=== PATIENT | male | born 1980 | race Caucasian/White ===

== ENCOUNTER 2018-01-16 21:19 | Emergency (ER) | payer OTHER, MEDICAID, SELFPAY ==
[2018-01-16 21:34] VITALS: BP 140/85; PULSE 73; RESP 16; TEMP 36.7; O2SAT 100; BMI 25.0
--- NOTE | 2018-01-16 21:56 | DI.CT.S_ITS ---
PROCEDURE: CT HEAD/BRAIN WO CON INDICATIONS: severe headaches, blurred vision TECHNIQUE: Noncontrast 4.5 mm thick angled axial sections acquired from the foramen magnum to the vertex, with coronal and sagittal reformats. For radiation dose reduction, the following was used: automated exposure control, adjustment of mA and/or kV according to patient size. COMPARISON: [facility], CR, XR HAND 2VW LT, 10/27/2016, 16:29. FINDINGS: Image quality: Excellent. CSF spaces: Basal cisterns are patent. No extra-axial fluid collections. Ventricles are normal in size and shape. Brain: No midline shift. No intracranial masses or hemorrhage. Alejandra-white matter interface is normal. Skull and face: Calvarium and visualized facial bones are intact, without suspicious lesions. Sinuses: Visualized sinuses and mastoids are clear. IMPRESSION: No acute intracranial process. Dictated by: Jacob Hollingsworth M.D. on 01/17/2018 at 7:03 Approved by: Jacob Hollingsworth M.D. on 01/17/2018 at 7:05
--- NOTE | 2018-01-16 22:43 | ED_ITS ---
HPI - Eye Problem General Chief complaint: Eye Problems Stated complaint: BILATERAL EYE PAIN, HEADACHES Time Seen by Provider: 01/16/18 21:30 Source: patient Mode of arrival: ambulatory Limitations: no limitations History of Present Illness HPI Narrative: 37-year-old nonsmoker presents to the emergency department with a chief complaint of irritation to his eyelids bilaterally. He's had burning and irritation to the skin of his upper eyelids and just below his brows for a few weeks. His symptoms have worsened since applying hydrocortisone cream (OTC 1 %). He was seen by his PCP whom sent him to an child care center administrator. He had a full eye exam and his eyes were normal. He thinks his symptoms may have started after being exposed to pigeon nests and feathers. He's started developing nonspecific frontal headaches as well. He denies any fever chills nor nausea or vomiting. He has had no chest pain, cough or shortness of breath. He denies any other rash. He denies any redness or watering of his eyes. He denies any drainage. He states that the skin of his eyelids has become slightly discolored mentioning to him it looks reddish yellow and there are blisters. Onset description: gradual Duration: constant Location: both eyes Eye Symptoms: burning If Pain, Quality: burning Associated symptoms: headache Related Data Home Medications Medication Instructions Recorded Confirmed cyclobenzaprine 10 mg PO PRN PRN 01/16/18 01/16/18 Previous Rx's Medication Instructions Recorded doxycycline hyclate 100 mg PO BID #20 tab 01/16/18 Allergies Allergy/AdvReac Type Severity Reaction Status Date / Time No Known Drug Allergies Allergy Verified 01/16/18 21:38 Review of Systems Review of Systems All systems reviewed & are unremarkable except as noted in HPI and below Constitutional Denies chills, Denies fever(s), Reports headache(s), Denies lethargy and Denies weakness Eyes Denies change in vision, Denies eye discharge, Denies irritation and Denies loss of vision ENT Ears, Nose, Mouth, and Throat: Denies change in voice, Reports headache(s), Denies neck pain and Denies sore throat Cardiovascular Denies chest pain, Denies irregular heart rhythm, Denies lightheadedness, Denies palpitations, Denies dyspnea, Denies dyspnea on exertion and Denies orthopnea Respiratory Denies cough, Denies dyspnea, Denies dyspnea on exertion and Denies wheezing Gastrointestinal Gastrointestinal: Denies abdominal pain, Denies change in bowel habits, Denies diarrhea, Denies nausea and Denies vomiting Genitourinary Denies hematuria, Denies flank pain, Denies urinary incontinence and Denies urinary urgency Musculoskeletal Denies neck pain Integumentary/Breasts Denies pruritus, Reports erythema, Denies rash, Reports skin pain and Denies wounds Neurologic Denies confusion, Reports headache(s), Denies loss of vision and Denies weakness Psychiatric Denies anxiety, Denies confusion, Denies depression, Denies homicidal ideation and Denies suicidal ideation Endocrine Denies palpitations Hematologic/Lymphatic Denies easy bruising Allergic/Immunologic Denies wheezing PFSH Social History Smoking Status: Never smoker Exam Narrative Exam Narrative: GEN: AOx3 and in mild distress, a and O x3, GCS 15 EYES: Pupils are equal, round, and reactive to light and accommodation. Extraoccular muscles are intact bilaterally. There is no subconjunctival hemorrhage or exudate. Normal fundoscopic exam CHEST: Lungs are clear to auscultation bilaterally and free of wheezes, rales, or rhonchi. Heart rate is regular rhythm, there are no murmurs, clicks, rubs, or gallops. There is no chest wall tenderness. ABD: Abdomen is soft and nontender. There is no guarding or rebound. Bowel sounds are normal in all 4 quadrants. There is no mass or organomegaly. EXT: Full painless ROM of all extremities with no loss of sensation or strength. SKIN: Warm, pink, and dry. No erythema or rash. Patient complains of tenderness and sensitivity to upper lids B/L. There is no swelling, induration or obvious color change. NIH Stroke Scale 1a. LOC: Patient is alert and keenly responsive (0) 1b. LOC Questions: Patient answers both LOC questions accurately (0) 1c. LOC Commands: Patient performs both tasks correctly (0) 2. Best Gaze: Normal (0) 3. Visual: No visual loss (0) 4. Facial palsy: Normal symmetrical movements (0) 5. Motor arm: No drift (0) 6. Motor leg: No drift (0) 7. Limb ataxia: Absent (0) 8. Sensory: Normal (0) 9. Best language: No aphasia; normal (0) 10. Dysarthria: Normal (0) 11. Extinction and inattention: No abnormality (0) NIHSS: 0 Initial Vital Signs Initial Vital Signs: Vital Signs Temperature 98.0 F 01/16/18 21:34 Pulse Rate 73 01/16/18 21:34 Respiratory Rate 16 01/16/18 21:34 Blood Pressure 140/85 01/16/18 21:34 Pulse Oximetry 100 01/16/18 21:34 Course Orders Ordered: ED Orders 01/16/18 21:56 CT head/brain wo con Stat Vital Signs - 8 hr 01/16/18 21:34 Temperature 98.0 F Pulse Rate 73 Respiratory Rate 16 Blood Pressure 140/85 Pulse Oximetry 100 MDM - Eye Problem Differential Diagnosis Likely periorbital cellulitis Medical Records Attestation: I reviewed the patient's medical records. Lab Data No CT evidence of hemorrhage, mass, or acute infarct MDM Narrative Medical decision making narrative: 37-year-old otherwise healthy male complains of sensitivity and burning to the skin of his upper eyelids for many weeks, he thinks it may have started after being exposed to pigeon droppings, feathers, etc. He has had evaluations by his primary care provider an ophthalmology (or optometry) which have yielded no significant findings. He has been using hydrocortisone on his upper lids which may be making things worse. CT was performed given the occasional blurred vision and headache which demonstrated no significant findings. Periorbital and orbital cellulitis considered but physical exam findings are very mild and this is thought much less likely given the minimal findings. It seems reasonable that there is a mild bilateral blepharitis which has not responded to his therapies. Will refer him to Dermatology Discharge Plan Departure Patient Disposition: Home Clinical Impression: Blepharitis of both eyes Instructions: DI for Blepharitis Activity Restrictions/Additional Instructions: *You have been diagnosed with [ possible bilateral blepharitis vs. other skin irritation ] *What to do: *Take medications as directed *Follow up with your primary care provider in 2-3 days, call for an appointment. Let them know you were seen in the Emergency Department and that we ask that you be seen in follow up *Return to ER if you should have any new, worsening or concerning symptoms Prescriptions: New doxycycline hyclate 100 mg tablet 100 mg PO BID Qty: 20 RF: 0 No Action cyclobenzaprine 10 mg tablet 10 mg PO PRN PRN (Reason: muscle spasms) RF: 0 Referrals: Mary Chacko MD [Physician] -
[2018-01-16 23:07] VITALS: BP 147/87; PULSE 59; RESP 14; O2SAT 100
== END 2018-01-16 23:08 | disposition home or self-care (01) ==
PROVIDERS: Emergency Provider Emergency Medicine
DX: H01.003 Unspecified blepharitis right eye, unspecified eyelid (principal); H01.006 Unspecified blepharitis left eye, unspecified eyelid
CPT/HCPCS: 70450; 99282; 99283

== ENCOUNTER 2018-06-16 20:35 | Emergency (ER) | payer OTHER, MEDICAID, SELFPAY ==
[2018-06-16 20:50] VITALS: BP 146/95; PULSE 89; RESP 18; TEMP 36.9; O2SAT 96; BMI 26.2
== END 2018-06-16 21:55 | disposition left against medical advice (07) ==
PROVIDERS: Emergency Provider Emergency Medicine
DX: Z53.21 Procedure and treatment not carried out due to patient leaving prior to being seen by health care provider (principal)
CPT/HCPCS: 99282

== ENCOUNTER 2018-09-27 10:24 | Emergency (ER) | payer OTHER, MEDICAID, SELFPAY ==
--- NOTE | 2018-09-27 11:21 | ED.BACK ---
HPI - Back Pain/Injury <PERFECTO Smith - Last Filed: 09/27/18 13:19> General Chief Complaint: Back Pain/Injury Stated Complaint: Low Back Pain, abcess Time Seen by Provider: 09/27/18 11:00 Source: patient Mode of arrival: ambulatory Limitations: no limitations History of Present Illness HPI Narrative: 38-year-old male presents emergency department today for wound on his left buttock for the past few months. He states he has taken doxycycline multiple times in used ointment on the area but it has not resolved completely. He reports increased low back pain, patient states he seen a neurologist and a neurosurgeon about 2 years ago for his back and neck pain. He does not remember the diagnosis but stated he received spinal tap and afterwards had multiple headaches. He states ?no one really listen to me ?so he stopped seeing his neurologist, his last visit was 1 year ago. He stated he has had multiple MRIs. However, he was concerned with this wound that he may have a spinal infection. He denies fevers, confusion, vision loss, double vision, decreased range of motion of his neck, recent illness, nasal discharge, ear pain, sore throat, chest pain, shortness of breath, nausea, vomiting, diarrhea, dysuria, or difficulty walking. He denies loss of bowel or bladder control, denies saddle paresthesias, or limb numbness. Patient is a a fairly poor historian and some of his stories do not connect completely. He describes his low back pain as a dull aching 4/10 that is worse with movement and better with rest, he has been taking Flexeril for a while for this. MD Complaint: back pain Onset (ago): year(s) Similar Symptoms Previously: Yes Location: lumbar spine Related Data Home Medications Medication Instructions Recorded Confirmed cyclobenzaprine 10 mg PO BEDTIME PRN 09/27/18 09/27/18 Previous Rx's Medication Instructions Recorded meloxicam [Mobic] 15 mg PO DAILY #10 tab 09/27/18 Allergies Allergy/AdvReac Type Severity Reaction Status Date / Time No Known Drug Allergies Allergy Verified 01/16/18 21:38 Review of Systems <PERFECTO Smith - Last Filed: 09/27/18 13:19> Review of Systems REVIEW OF SYSTEMS: GENERAL: Denies fever, chills, malaise, or wt. loss. HENT: No head trauma, hearing loss, rhinorrhea, epistaxis, sinus pressure, sore throat, or dysphagia. EYES: No loss of vision, double vision, eye pain, or irritation. CARDIOVASCULAR: No chest pain, palpitations, edema, syncope, or orthopnea. RESPIRATORY: No shortness of breath, cough, or wheeze. GASTROINTESTINAL: No change in appetite, nausea, vomiting, stool changes, or melena. GENITOURINARY: No flank pain, urinary incontinence, hesitancy, frequency, or dysuria. No vaginal discharge or dyspareunia. MUSCULOSKELETAL: No pain, weakness, or deformities. INTEGUMENTARY: Complains of lesion to left buttocks, see HPI. NEURO: Complains of headaches and low back pain, see HPI. PSYCH: No behavior or mood changes. ENDOCRINOLOGY: No hair loss of temperature intolerance. HEMATOLOGY: No easy bruising. LYMPHATIC: No lymphadenopathy. PFSH <PERFECTO Smith - Last Filed: 09/27/18 13:19> Medical History Chronic neck pain (Chronic) Social History (Updated 01/16/18 @ 22:46 by Alex Santacruz DO) Smoking Status: Never smoker Social History Smoking Status: Never smoker Exam <PERFECTO Smith - Last Filed: 09/27/18 13:19> Initial Vital Signs Initial Vital Signs: PHYSICAL EXAMINATION: GENERAL: Well groomed, alert, and cooperative. Patient is a fairly poor historian, continues to ask the same question even after given multiple lengthy explanations. Answers questions promptly and appropriately. Vital signs noted. HENT: Normocephalic, atraumatic. Ear canals patent, tympanic membranes normal without irritation or effusion, crisp light reflex present. Oral mucosa is pink and moist, no caries or lesions present. Pharynx without erythema. EYES: PERRLA, EOMIs, conjunctiva pink, sclera white, no periorbital swelling. NECK: Full range of motion, nontender. LYMPH: No lymphadenopathy. CHEST: Normal to inspection and without deformities. CARDIOVASCULAR: S1 and S2 sounds normal. Regular rate and rhythm, no murmurs, clicks, or bruits. No pedal edema. RESPIRATORY: Normal respiratory rate, trachea midline, airway patent. No stridor, nasal flaring or accessory muscle use. Lungs are clear in all pickett without wheeze, rhonchi, or crackles. GASTROINTESTINAL: Bowel sounds normoactive. Abdomen is soft and non-tender. No organomegaly. MUSCULOSKELETAL: Equal strength to upper and lower extremities bilaterally. Normal gait and coordination. Equal tone and mass bilaterally. Paraspinal tenderness, tightness, and palpable muscle spasms noted to left mid thoracic paraspinal muscles and left lumbar paraspinal muscles. EXTREMITIES: CMS intact. Moves all extremities as requested. SKIN: Warm, dry, soft, appropriate color for ethnicity. A healing ulceration approximately 1.5cm in diameter noted to the superior aspect of left buttocks, no discharge noted, no surrounding erythema, no ecchymosis, no necrotic tissue. Wound bed is pink with new healing tissue. No fluctuation or abscess suspected upon examination. NEURO: Alert and Oriented X 3. CN III-XII intact; EMOIs, facial sensation intact bilaterally, facial muscles intact bilaterally, hearing grossly intact, uvula is midline and pronates, patient able to stick out tongue, pt exhibits full range of motion of neck and ability to shrug shoulders. Muscle tone intact without rigidity. Good coordination. No ataxia, or sensory deficits, or cognitive issues. NIH Stroke Scale 1a. LOC: Patient is alert and keenly responsive (0) 1b. LOC Questions: Patient answers both LOC questions accurately (0) 1c. LOC Commands: Patient performs both tasks correctly (0) 2. Best Gaze: Normal (0) 3. Visual: No visual loss (0) 4. Facial palsy: Normal symmetrical movements (0) 5. Motor arm: No drift (0) 6. Motor leg: No drift (0) 7. Limb ataxia: Absent (0) 8. Sensory: Normal (0) 9. Best language: No aphasia; normal (0) 10. Dysarthria: Normal (0) 11. Extinction and inattention: No abnormality (0) PSYCH: Patient exhibits a very flat affect. He is redirected but asks the same questions multiple times despite lengthy explanations and redirection. His daughter was at the bedside presented exam and remained very quiet and did not participate in his care. Scores <PERFECTO Smith - Last Filed: 09/27/18 13:19> Nexus Score for C-Spine Focal Neurologic deficit present: No Midline spinal tenderness present: No Altered level of conciousness present: No Intoxication present: No Distracting Injury Present: No Nexus Criteria for C-spine: 0 Course <PERFECTO Smith - Last Filed: 09/27/18 13:19> Course Narrative: I was able to obtain records from [facility], it appears that his last visit was 04/11/2018 were he was evaluated by Dr. Zhu, his MRIs were reviewed and he received EMG testing. Patient was instructed to use ice, gabapentin, and Flexeril for pain. His cervical MRI from 2016 showed: 1. Focus of increased T2 signal and mild postcontrast enhancement in the paraspinal soft tissue adjacent to the left C6 lamina, left C6-C7 facet and left margin of the C6 spinous process compatible with nonspecific edema. Differential diagnosis included at that time trauma, infection, less likely neoplastic process. 2. Increased T2 signal and subtle postcontrast enhancement in the subchondral marrow of the left C6 lamina compatible with nonspecific bone marrow edema. Orders Ordered: Discontinued Medications Ketorolac Tromethamine (Toradol) 30 mg IV NOW ONE Stop: 09/27/18 11:19 Last Admin: 09/27/18 11:41 Dose: Not Given Ketorolac Tromethamine (Toradol) 30 mg IM NOW ONE Stop: 09/27/18 11:34 Last Admin: 09/27/18 11:43 Dose: 30 mg Reevaluation(s) Reevaluation #1: Patient stated his pain and headache significantly decreased was with administration of Toradol. Bacitrain was applied to the small wound on his buttock. Extensive conversation was had with patient about the possible origin of his back pain, I encouraged him to follow up with his primary care provider and Neurology for discussion of further testing if it was indicated and for trying physical therapy. I also discussed with patient that the wound on his buttocks does not indicated spinal infection which he was worried about, there is no abscess, and the wound appears to be a small healing superficial ulcer without evidence of cellulitis. Patient has is that the wound gets coming back, over 20 minutes was spent with patient discussing his symptoms and plan of care. Patient seemed to be searching for answers for why his wound continued to return and why he was having more back pain. We discussed that an MRI cannot be ordered at this time, the symptoms were likely musculoskeletal in origin, that when his pain flare he may sit differently causing the ulcer to increase. Education about hiding, dental structures, and the importance of follow-up was given to the patient. <Rossana Knapp DO - Last Filed: 09/28/18 07:21> Orders Ordered: Discontinued Medications Ketorolac Tromethamine (Toradol) 30 mg IV NOW ONE Stop: 09/27/18 11:19 Last Admin: 09/27/18 11:41 Dose: Not Given Ketorolac Tromethamine (Toradol) 30 mg IM NOW ONE Stop: 09/27/18 11:34 Last Admin: 09/27/18 11:43 Dose: 30 mg MDM - Back Pain/Injury <PERFECTO Smith - Last Filed: 09/27/18 13:19> Medical Records Attestation: I reviewed the patient's medical records. Lab Data Attestation: I reviewed the patient's lab results. MDM Narrative Medical decision making narrative: Differential includes paraspinal muscle spasm (high suspicion due to palpable muscle spasm on examination, description of pain, history of low back pain), chronic spinal neurological changes (history of past MRI showing swelling and spinal changes, EMG testing that has been performed already, and past neurological consult this March), spinal infection (less likely due to lack of systemic symptoms, normal neuro exam, and the slow progression of symptoms, no correlation with his wound to his spine, no recent trauma or invasive spinal procedures), less likely cauda equina (no saddle paresthesias, patient is able ambulate without distress, equal strength bilaterally to lower extremities). Over 20-30 minutes was spent with patient explaining that I was not concerned for spinal infection and that has the small ulceration on his buttocks was not correlated to a spinal infection. Explained the importance of follow-up with his primary care provider as well as her neurologist for further management of his pain and further testing if indicated. I prescribed him Mobic for his muscle spasms and pain as he stated he was tired of taking so much ibuprofen. Extensive counseling was had over the fact that Mobic can cause GI bleeding, explained precautions of taking NSAIDs. Strict return precautions given and follow-up instructions discussed. Discharge Plan Departure Patient Disposition: Home Clinical Impression: Strain of lumbar region Qualifiers: Encounter type: initial encounter Qualified Code(s): S39.012A - Strain of muscle, fascia and tendon of lower back, initial encounter Back pain Qualifiers: Back pain location: low back pain Chronicity: unspecified Back pain laterality: midline Sciatica presence: unspecified whether sciatica present Qualified Code(s): M54.5 - Low back pain Discharge Date/Time: 09/27/18 12:36 Interventions: ED Discharge Assessment Last Done: 09/27/18 12:36 Instructions: DI for Low Back Pain Activity Restrictions/Additional Instructions: Thank you for entrusting me with your care today. As discussed, I have reviewed her records from her neurologist, it appears that you have had an MRI that indicates soft tissue inflammation. This may be because of your upper extremity weakness and neck pain. There were palpable muscle spasms in her lower back which may be also contributing to her pain. Your wound looks like it is healing, I suggest putting bacitracin on it for the next week. Please follow up with her primary care provider for further testing and referrals as needed, I suggest exploring the option of physical therapy with your provider. I prescribed you an anti-inflammatory pain medication, do not take this with ibuprofen. Please return to the emergency department you experience chest pain, shortness of breath, inability to walk, inability to urinate, vision changes, or syncope. Prescriptions: New meloxicam [Mobic] 15 mg tablet 15 mg PO DAILY Qty: 10 RF: 0 No Action cyclobenzaprine 10 mg tablet 10 mg PO BEDTIME PRN (Reason: Spasms) RF: 0 Referrals: Andrew Zhu MD [Non-Staff] - (F/U for past MRI and new lumbar pack pain. ) <Rossana Knapp DO - Last Filed: 09/28/18 07:21> [facility] ED Attending Abimaelature Attestation: I was immediately available in the department for consultation. Documentation has been reviewed. I agree with assessment and plan.
[2018-09-27] MEDS: KETOROLAC 60 MG/2 ML VIAL 30 MG IM (11:43)
== END 2018-09-27 12:36 | disposition home or self-care (01) ==
PROVIDERS: Emergency Provider Nurse Practitioner
DX: S39.012A Strain of muscle, fascia and tendon of lower back, initial encounter (principal)
CPT/HCPCS: 96372; 99283; J1885

== ENCOUNTER 2018-12-18 21:18 | Emergency (ER) | payer OTHER, MEDICAID, SELFPAY ==
[2018-12-18 21:38] VITALS: BP 137/77; PULSE 63; RESP 18; TEMP 36.6; O2SAT 97; BMI 25.0
--- NOTE | 2018-12-18 21:51 | ED_ITS ---
HPI - Neck Pain/Injury General Chief Complaint: Neck Pain/Injury Stated Complaint: PAINFUL LUMP LEFT SIDE OF NECK Time Seen by Provider: 12/18/18 21:51 Mode of arrival: Ambulatory Limitations: no limitations History of Present Illness HPI Narrative: This is a 38-year-old male who states he has a lump in the left side of his neck. He states it started a week ago when he was singing he felt like he popped something. Patient states that since then when he tries to sing he feels very lightheaded. He states that he has not passed out. Denies any chest pain or pressure, he does not feel short of breath. He denies any nausea or vomiting. He states he has issues or sometimes it hurts to have a bowel movement but he does not think that is related. He states it had that for a long time. No urinary issues. No numbness, weakness or tingling. He feels like he appreciates the change in the tissue on his neck that there is sort of a lump or something wrong maybe with the blood vessels. Patient states he has not had any change to his voice. He has not had a sore throat. patient states movement maybe seems to make it a little bit worse. He does not feel like the swelling is continuing to enlarge. He states only medication he takes is cyclobenzaprine for neck issues. He states that he has had neck problems in the past and has had issues with tingling down his arm but states that is not the issue today. Related Data Home Medications Medication Instructions Recorded Confirmed cyclobenzaprine 10 mg PO BEDTIME PRN 09/27/18 09/27/18 Previous Rx's Medication Instructions Recorded meloxicam [Mobic] 15 mg PO DAILY #10 tab 09/27/18 Allergies Allergy/AdvReac Type Severity Reaction Status Date / Time No Known Drug Allergies Allergy Verified 12/18/18 21:38 Review of Systems Review of Systems ROS Unobtainable: All systems reviewed & are unremarkable except as noted in HPI and below Constitutional Constitutional: Denies headache(s) and Denies weakness ENT Ears, Nose, Mouth, and Throat: Denies change in voice, Denies dysphagia, Denies vertigo, Reports dizziness, Denies otalgia, Denies facial pain, Denies headache(s), Denies hoarseness, Denies nasal congestion, Denies neck mass (feels swollen), Reports neck pain, Denies odynophagia, Denies disequilibrium, Denies post nasal drip, Denies sore throat, Denies throat swelling and Denies tongue sw elling Cardiovascular Cardiovascular: Denies chest pain, Denies syncope, Reports lightheadedness, Denies dyspnea and Denies dyspnea on exertion Respiratory Respiratory: Denies change in phlegm color, Denies chest congestion, Denies cough, Denies dyspnea, Denies dyspnea on exertion, Denies stridor and Denies wheezing Gastrointestinal Gastrointestinal: Denies abdominal pain, Denies change in bowel habits, Denies dysphagia, Denies diarrhea, Denies nausea, Denies odynophagia and Denies vomiting Genitourinary Genitourinary: Denies dysuria, Denies urinary frequency and Denies urinary urgency Musculoskeletal Musculoskeletal: Reports neck pain, Denies numbness and Denies tingling Neurologic Neurologic: Denies vertigo, Reports dizziness, Denies syncope, Denies headache(s), Denies focal weakness, Denies numbness, Denies sensory deficit, Denies tingling, Denies disequilibrium and Denies weakness Allergic/Immunologic Allergic/Immunologic: Denies throat swelling, Denies tongue swelling and Denies wheezing Patient History Medical History Chronic neck pain (Chronic) Social History Smoking Status: Current every day smoker tobacco type: cigarettes Substance Use Type: marijuana Exam Narrative Exam Narrative: GEN: well nourished, well appearing male, alert and oriented x 3, patient appears to be in mild distress. HEENT: Atraumatic, pupils are equal round reactive to light, extraocular movements are intact, nares are clear, TMs are clear with no fluid. Throat is clear without any exudates, erythema, tonsillar enlargement or uvular deviation, patient has no obvious swelling appreciated, his EJ may be slightly more prominent than the other side but is difficult to appreciate. Patient has full range of motion. He is mildly tender over the SCM area but not exquisitely so. Patient does not have any bony tenderness of the cervical spine. He does not have any significant tightness that I can appreciate. There are no masses or enlarged lymph nodes appreciated. HEART: Regular rate and rhythm without murmur, clicks, rubs. No carotid bruits. pulses equal bilateral upper extremities LUNGS:Lungs clear to auscultation, no wheezes, rales, crackles, chest moves symmetrically ABD:bowel sounds normal, soft, non-tender, no guarding, rebound, rigidity, no masses noted, no hepatosplenomegaly MSCL: Non-tender, no muscle atrophy, muscles strength 5/5 upper and lower extremities, full range of motion, normal gait NEURO:CN 2-12 intact, sensation normal. SKIN: No erythema, no vesicles, no other skin color changes, no ecchymosis, no bruising. Initial Vital Signs Initial Vital Signs: Vital Signs Temperature 97.9 F 12/18/18 21:38 Pulse Rate 63 12/18/18 21:38 Respiratory Rate 18 12/18/18 21:38 Blood Pressure 137/77 12/18/18 21:38 Pulse Oximetry 97 12/18/18 21:38 Course Orders Ordered: ED Orders 12/18/18 22:05 US soft tissue head and neck Stat 12/18/18 22:15 Basic Metabolic Panel Stat Complete Blood Count AUTO DIFF Stat Discontinued Medications Ketorolac Tromethamine (Toradol) 30 mg IV NOW ONE Stop: 12/18/18 22:06 Last Admin: 12/18/18 22:19 Dose: 30 mg Documented by: HOSSEIN Vital Signs Vital signs: Vital Signs - 8 hr 12/18/18 21:38 12/18/18 22:57 12/18/18 23:57 Temperature 97.9 F Pulse Rate 63 57 L 53 L Respiratory Rate 18 18 16 Blood Pressure 137/77 Blood Pressure [Right Arm] 137/75 127/70 Pulse Oximetry 97 95 95 MDM - Neck Pain/Injury Lab Data Attestation: I reviewed the patient's lab results. Result diagrams: 12/18/18 22:15 12/18/18 22:15 Labs: Lab Results 12/18/18 12/18/18 Range/Units 22:15 22:15 WBC 9.7 (4.5-11.0) X10^3/uL RBC 4.69 (4.5-5.9) X10^6/uL Hgb 13.3 L (13.5-17.5) g/dL Hct 39.2 L (41-53) % MCV 83.6 (80-100) fL MCH 28.4 (26-34) PG MCHC 33.9 (30-36) % RDW 13.9 (11.6-14.8) % Plt Count 261 (150-400) X10^3/uL Neut % (Auto) 65.0 (50-75) % Lymph % (Auto) 22.7 L (25-40) % [place] % (Auto) 9.4 (3-14) % Eos % (Auto) 2.0 (2-4) % Baso % (Auto) 0.9 (0-2) % Neut # (Auto) 6300 (3116-4696) /uL Lymph # (Auto) 2200 (1280-9004) /uL [place] # (Auto) 900 (0-900) /uL Eos # (Auto) 200 (0-450) /uL Baso # (Auto) 100 (0-100) /uL Sodium 138 (137-145) mmol/L Potassium 3.7 (3.4-5.1) mmol/L Chloride 104 (98-107) mmol/L Carbon Dioxide 26 (22-32) mmol/L BUN 17 (9-20) mg/dL Creatinine 0.90 (0.66-1.25) mg/dL Estimated GFR > 60.0 (>60) mL/min BUN/Creatinine Ratio 18.9 (6-22) Glucose 89 (70-100) mg/dL Calcium 9.5 (8.4-10.2) mg/dL Imaging Data US neck: My impression: Non enlarged lymph nodes are noted, each measure less than 1 cm in the short axis dimension. No fluid collections or aneurysms are identified. Comparison images of the right next were performed and unrema rkable. [facility] Narrative Medical decision making narrative: Discussed findings with patient, otherwise normal lab work. Patient's ultrasound shows some lymph nodes on the left side but they are all less than 1 cm and not enlarged. There were not palpable on my physical exam. Patient does not have any hoarseness, muffled voice, sore throat, fevers or changes consistent with airway impingement, injury, infection patient may have a little bit of a muscle strain. Some discussed with patient plan for conservative management and follow up with primary care. Patient states he does have a primary care physician. Discharge Plan Departure Patient Disposition: Home Clinical Impression: Strain of neck muscle Discharge Date/Time: 12/19/18 00:04 Activity Restrictions/Additional Instructions: Follow-up with primary care in the next 3-5 days for recheck. Call for an appointment. If you do not have a primary care using follow-up [phone] with the human resource internship. Lab work shows a very mild anemia, ultrasound shows some lymph nodes that are appropriately sized but no other acute changes today. I suspect you may have strained or injured 1 of the muscles in her neck, although I do recommend following up with primary care if this is not improving. You may continue your cyclobenzaprine if you find this helpful. Return to the ER for fevers greater than 100.4F, passing out, persistent vomiting, muffled voice, inability to swallow saliva or secretions, rapid swelling of your airway or neck, persistent vomiting, new weakness numbness or inability use or extremities or other new or concerning symptoms. Prescriptions: No Action cyclobenzaprine 10 mg tablet 10 mg PO BEDTIME PRN (Reason: Spasms) RF: 0 meloxicam [Mobic] 15 mg tablet 15 mg PO DAILY Qty: 10 RF: 0
--- NOTE | 2018-12-18 22:05 | DI.US.S_ITS ---
PROCEDURE: US SOFT TISSUE HEAD AND NECK INDICATIONS: LEFT NECK PAIN, PATIENT FEELS LIKE MASS. STARTED WHILE SINGI TECHNIQUE: Real-time scanning was performed of the neck region of interest, with image documentation. COMPARISON: None. FINDINGS: Multiple grayscale color Doppler images of the left neck were acquired. Targeted imaging at the palpable area of patient concern revealed no focal fluid collections or suspicious mass lesions. Several morphologically normal-appearing cervical chain lymph nodes were visualized, all measuring less than 10 mm in short axis dimension. The right side was also scanned for comparison and demonstrated no abnormalities. IMPRESSION: Multiple morphologically normal-appearing lymph nodes measuring less than 10 mm in short axis dimension within the left neck and correlating with palpable area of patient concern. No suspicious mass lesion, adenopathy, or focal fluid collection identified. Recommend clinical followup for persistent symptoms. No significant discrepancy with the night stocker radiology preliminary report. Dictated by: Clark Rios M.D. on 12/19/2018 at 7:48 Approved by: Clark Rios M.D. on 12/19/2018 at 7:55
[2018-12-18] MEDS: KETOROLAC 60 MG/2 ML VIAL 30 MG IV (22:19)
[2018-12-18 22:25] LABS: Add Manual Diff / Slide Review NO; Basophils Absolute Auto 100 /uL (0-100); Basophils Percent Auto 0.9 % (0-2); Eosinophils Absolute Auto 200 /uL (0-450); Hematocrit 39.2 % (41-53); Hemoglobin 13.3 g/dL (13.5-17.5); Lymphocytes Absolute Auto 2200 /uL (1100-4500); Lymphocytes Percent Auto 22.7 % (25-40); Mean Corpuscular HGB Conc 33.9 % (30-36); Mean Corpuscular Hemoglobin 28.4 PG (26-34); Mean Corpuscular Volume 83.6 fL (80-100); Monocytes Absolute Auto 900 /uL (0-900); Monocytes Percent Auto 9.4 % (3-14); Neutrophils Absolute Auto 6300 /uL (1500-7000); Platelet Count 261 X10^3/uL (150-400); Red Blood Cell Count 4.69 X10^6/uL (4.5-5.9); Red Cell Distribution Width 13.9 % (11.6-14.8); White Blood Cell Count 9.7 X10^3/uL (4.5-11.0)
[2018-12-18 22:33] LABS: BUN Creatinine Ratio 18.9 (6-22); Blood Urea Nitrogen 17 mg/dL (9-20); Calcium 9.5 mg/dL (8.4-10.2); Carbon Dioxide 26 mmol/L (22-32); Chloride 104 mmol/L (98-107); Estimated Glomerular Filt Rate > 60.0 mL/min (>60); Glucose 89 mg/dL (70-100); HEMOLYSIS < 15 (0-50); Potassium 3.7 mmol/L (3.4-5.1); Sodium 138 mmol/L (137-145)
[2018-12-18 22:57] VITALS: BP 137/75; PULSE 57; RESP 18; O2SAT 95
--- NOTE | 2018-12-18 23:09 | PC.NURSE ---
Pt aware of transfer. Pt resting quietly in bed. Pt woke to take medication, get vitals taken denies pain, states remains anxious then closed eyes with lights dim.
[2018-12-18 23:57] VITALS: BP 127/70; PULSE 53; RESP 16; O2SAT 95
== END 2018-12-19 00:04 | disposition home or self-care (01) ==
PROVIDERS: Emergency Provider Emergency Medicine
DX: S16.1XXA Strain of muscle, fascia and tendon at neck level, initial encounter (principal)
CPT/HCPCS: 36415; 76536; 80048; 85025; 96374; 99283; 99284; J1885

== ENCOUNTER 2021-10-17 16:31 | Emergency (ER) | payer OTHER, MEDICAID, SELFPAY ==
[2021-10-17 16:33] VITALS: BP 133/85; PULSE 65; RESP 20; TEMP 36.9; O2SAT 100
--- NOTE | 2021-10-17 16:36 | DI.RAD.S_ITS ---
PROCEDURE: XR FINGER RT MIN 2V INDICATIONS: pain TECHNIQUE: AP hand, 2 views of the 5th finger(s) acquired. COMPARISON: None. FINDINGS: Bones: No fractures or dislocations. No suspicious bony lesions. Soft tissues: No suspicious soft tissue calcifications. IMPRESSION: Unremarkable right 5th finger radiographs Approved by: Tarun Moran M.D. on 10/17/2021 at 16:29
== END 2021-10-17 20:15 | disposition left against medical advice (07) ==
PROVIDERS: Emergency Provider Emergency Medicine
DX: M79.644 Pain in right finger(s) (principal)
CPT/HCPCS: 73140; 99281

== ENCOUNTER → 2023-01-07 16:07 | Outpatient (CLI) | payer OTHER, MEDICAID, SELFPAY ==
--- NOTE | 2023-01-07 16:09 | DI.RAD.S_ITS ---
PROCEDURE: XR TIBIA fibula RT 2V INDICATIONS: Right leg injury TECHNIQUE: 2 views of the tibia and fibula were acquired. COMPARISON: None. FINDINGS: Bones: No fractures or dislocations. No suspicious bony lesions. Soft tissues: No suspicious soft tissue calcifications or masses. IMPRESSION: Unremarkable right tibia fibula radiographs Approved by: Tarun Moran M.D. on 01/07/2023 at 16:11
== END ==
PROVIDERS: Referring Provider Registered Nurse; Visit Provider Registered Nurse
DX: M79.661 Pain in right lower leg (principal)
CPT/HCPCS: 73590